=== PATIENT | male | born 1950 | race Caucasian/White ===

== ENCOUNTER 2022-04-17 08:57 | Day surgery (SDC) | payer OTHER ==
[~2022-04-17] VITALS: Ht 177.8 cm; Wt 68.1 kg
[~2022-04-17 08:57] MED LIST: CORT; IBAN2.5; LEVSOD100; PARO30; PHENY100ER
[2022-04-17] MEDS ORDERED: FLUDROCORTISON0.1 M1 PO (09:26)
[2022-04-17] MEDS ORDERED: PRED5 PO (09:26)
[2022-04-17] MEDS ORDERED: PARO30 PO (09:27)
[2022-04-17] MEDS ORDERED: OMEP20ER PO (09:27)
--- NOTE | 2022-04-17 09:36 | NUR ---
04/17/22 0936 Estefani Thomas IN AT 0924 JOSÉ IN AT 0912
== END 2022-04-17 10:38 | disposition home or self-care (01) ==
LOC: ORSCSDS 08:57
PROVIDERS: Student in an Organized Health Care Education/Training Program
PROC: 08RJ3JZ Replacement of Right Lens with Synthetic Substitute, Percutaneous Approach (ICD-10-PCS; principal; 2022-04-17 10:30)
DX: H25.11 Age-related nuclear cataract, right eye (principal); E27.1 Primary adrenocortical insufficiency; E03.9 Hypothyroidism, unspecified; K21.9 Gastro-esophageal reflux disease without esophagitis; F32.A Depression, unspecified; Z79.899 Other long term (current) drug therapy
CPT/HCPCS: J2001; J2250; J7040; V2632